=== PATIENT | female | born 1995 | race African-American/Black ===

== ENCOUNTER 2018-04-08 14:38 | Emergency (ER) | payer MEDICAID, OTHER ==
[~2018-04-08] VITALS: Ht 165.1 cm; Wt 149.7 kg
[2018-04-08] MEDS ORDERED: SODIUM CHLORIDE 0.9% 1,000 ML IVB ONE (14:48)
[2018-04-08] MEDS ORDERED: ASPirin 81 mg TAB PO ONE (15:00)
[2018-04-08 16:20] LABS: Albumin 3.4 g/dL (3.4-5.0); Anion Gap 7 (5-15); Aspartate Aminotransferase 17 U/L (15-37); BUN/Creatinine Ratio 7.7; Blood Urea Nitrogen 6 mg/dL (7-18); Calcium 8.5 mg/dL (8.5-10.1); Carbon Dioxide 24 mmol/L (21-32); Chloride 108 mmol/L (98-107); GFR African American 119 mL/min; GFR Non-African American 98 mL/min; Glucose 84 mg/dL (74-106); Magnesium 1.9 mg/dL (1.6-2.6); Potassium 3.9 mmol/L (3.5-5.1); Sodium 139 mmol/L (136-145)
[2018-04-08 16:25] LABS: Alanine Aminotransferase 25 U/L (13-56); Alkaline Phosphatase 88 U/L (45-117); Bilirubin, Total 0.4 mg/dL (0.2-1.0); Total Protein 7.5 g/dL (6.4-8.2)
[2018-04-08 16:27] LABS: Basophils # (auto) 0 uL; Eosinophils # (auto) 0.1 uL; Hemoglobin 12.8 g/dL (12.2-16.2); Monocytes # (auto) 0.5 uL; Neutrophils # (auto) 7.2 uL; Platelet Count (auto) 235 10^3/uL (140-450)
[2018-04-08 16:30] LABS: Basophils % (auto) 0.3 % (0.0-2.0); Eosinophils % (auto) 1.1 % (0.0-7.0); Hematocrit 39.1 % (36.0-46.0); Lymphocytes % (auto) 20.6 % (10.0-50.0); Mean Corpuscular Hemoglobin 26.4 pg (28.0-32.0); Mean Corpuscular Hgb Conc. 32.7 g/dL (32.0-36.0); Mean Corpuscular Volume 80.8 fL (80.0-100.0); Monocytes % (auto) 4.8 % (0.0-12.0); Neutrophils % (auto) 73.2 % (37.0-80.0); Nucleated Red Blood Cells % 0.1 %; Red Blood Cells 4.84 10^6/uL (4.0-5.20); Red Cell Distribution Width 16.1 % (11.8-14.3); White Blood Cell 9.8 10^3/uL (4.4-10.8)
[2018-04-08 17:15] VITALS: BP 129/71
== END 2018-04-08 18:13 | disposition home or self-care (01) ==
LOC: ER 14:42
DX: R07.89 Other chest pain (principal); R42 Dizziness and giddiness; F12.10 Cannabis abuse, uncomplicated; Z90.49 Acquired absence of other specified parts of digestive tract
CPT/HCPCS: 36415; 70450; 71045; 80053; 83735; 84484; 84702; 85025; 93005; 94761; 96360; 96361; 99284; J7030

== ENCOUNTER 2019-02-27 09:26 | Emergency (ER) | payer MEDICAID ==
[~2019-02-27] VITALS: Ht 165.1 cm; Wt 140.6 kg
[2019-02-27 10:12] LABS: Basophils # (auto) 0 uL; Basophils % (auto) 0.1 % (0.0-2.0); Eosinophils # (auto) 0 uL; Eosinophils % (auto) 0.1 % (0.0-7.0); Hematocrit 37.4 % (36.0-46.0); Hemoglobin 12.2 g/dL (12.2-16.2); Lymphocytes % (auto) 8.4 % (10.0-50.0); Mean Corpuscular Hemoglobin 26.2 pg (28.0-32.0); Mean Corpuscular Hgb Conc. 32.8 g/dL (32.0-36.0); Mean Corpuscular Volume 79.9 fL (80.0-100.0); Monocytes # (auto) 0.3 uL; Monocytes % (auto) 2.5 % (0.0-12.0); Neutrophils # (auto) 10.6 uL; Neutrophils % (auto) 88.9 % (37.0-80.0); Nucleated Red Blood Cells % 0.1 %; Platelet Count (auto) 274 10^3/uL (140-450); Red Blood Cells 4.67 10^6/uL (4.0-5.20); Red Cell Distribution Width 16.6 % (11.8-14.3); White Blood Cell 11.9 10^3/uL (4.4-10.8)
[2019-02-27] MEDS ORDERED: SODIUM CHLORIDE 0.9% 500 ML IVB ONE (10:18)
[2019-02-27 10:28] LABS: Urine Bacteria FEW /hpf (None Seen); Urine Blood 3+ /uL (Negative); Urine Mucus FEW (None Seen); Urine Specific Gravity 1.027 (1.001-1.035); Urine WBC 67 /hpf (0 - 5); Urine WBC Clumps PRESENT /hpf (None Seen)
[2019-02-27 10:29] LABS: BUN/Creatinine Ratio 5.4; Calcium 9.5 mg/dL (8.5-10.1); Potassium 3.5 mmol/L (3.5-5.1)
[2019-02-27] MEDS ORDERED: ONDANSETRON HCL 4 MG/2 ML VIAL IV ONE (10:30)
[2019-02-27 10:32] LABS: Bilirubin, Total 0.5 mg/dL (0.2-1.0); Total Protein 8.3 g/dL (6.4-8.2)
[2019-02-27] MEDS ORDERED: cefTRIAXone 1GM/50ML D5W 50 ML IV ONE (11:45)
[2019-02-27 13:36] VITALS: BP 121/79
== END 2019-02-27 13:37 | disposition home or self-care (01) ==
LOC: ER 09:26
DX: N39.0 Urinary tract infection, site not specified (principal); R11.2 Nausea with vomiting, unspecified; R19.7 Diarrhea, unspecified; E78.00 Pure hypercholesterolemia, unspecified
CPT/HCPCS: 36415; 80053; 81001; 81025; 83690; 85025; 86850; 86900; 86901; 94761; 96365; 96375; 99283; J0696; J2405

== ENCOUNTER 2019-06-02 16:05 | Emergency (ER) | payer MEDICAID ==
[~2019-06-02] VITALS: Ht 165.1 cm; Wt 136.1 kg
[2019-06-02 17:21] VITALS: BP 120/56
[2019-06-02 17:56] LABS: Urine Bacteria NONE SEEN /hpf (None Seen); Urine Blood Negative /uL (Negative); Urine Hyaline Cast FEW /lpf (0 - 2); Urine Mucus FEW (None Seen); Urine WBC 4 /hpf (0 - 5)
[2019-06-02 18:16] LABS: Basophils # (auto) 0 uL; Basophils % (auto) 0.1 % (0.0-2.0); Eosinophils # (auto) 0.2 uL; Eosinophils % (auto) 1.1 % (0.0-7.0); Hematocrit 32.7 % (36.0-46.0); Hemoglobin 10.2 g/dL (12.2-16.2); Lymphocytes # (auto) 1.7 uL; Lymphocytes % (auto) 11.3 % (10.0-50.0); Mean Corpuscular Hemoglobin 22.6 pg (28.0-32.0); Mean Corpuscular Hgb Conc. 31.2 g/dL (32.0-36.0); Mean Corpuscular Volume 72.5 fL (80.0-100.0); Monocytes # (auto) 0.7 uL; Monocytes % (auto) 4.8 % (0.0-12.0); Neutrophils # (auto) 12.6 uL; Neutrophils % (auto) 82.7 % (37.0-80.0); Nucleated Red Blood Cells % 0.1 %; Platelet Count (auto) 345 10^3/uL (140-450); Red Blood Cells 4.52 10^6/uL (4.0-5.20); Red Cell Distribution Width 17.1 % (11.8-14.3); White Blood Cell 15.3 10^3/uL (4.4-10.8)
[2019-06-02 18:32] LABS: Albumin 3.6 g/dL (3.4-5.0); BUN/Creatinine Ratio 9.8; Calcium 9.1 mg/dL (8.5-10.1); Potassium 4.1 mmol/L (3.5-5.1)
[2019-06-02 18:36] LABS: Bilirubin, Total 0.3 mg/dL (0.2-1.0); Total Protein 8.1 g/dL (6.4-8.2)
== END 2019-06-03 00:37 | disposition home or self-care (01) ==
LOC: ER 16:05
DX: J06.9 Acute upper respiratory infection, unspecified (principal); R10.31 Right lower quadrant pain; E78.5 Hyperlipidemia, unspecified
CPT/HCPCS: 36415; 70450; 74176; 76856; 80053; 81001; 81025; 84702; 85025

== ENCOUNTER 2020-01-08 10:19 | Emergency (ER) | payer MEDICAID ==
[~2020-01-08] VITALS: Ht 165.1 cm; Wt 131.5 kg
[2020-01-08 12:08] VITALS: BP 136/85
== END 2020-01-08 12:07 | disposition home or self-care (01) ==
LOC: ER 10:19
DX: R06.02 Shortness of breath (principal); R42 Dizziness and giddiness; Z20.828 Contact with and (suspected) exposure to other viral communicable diseases; Z90.49 Acquired absence of other specified parts of digestive tract
CPT/HCPCS: 36415; 71045; 87426